=== PATIENT | female | born 2000 | race Caucasian/White ===

== ENCOUNTER → 2023-07-19 | Outpatient (CLI) | payer BC ==
[~2023-07-19] MED LIST: NO HOME MEDICATIONS; PRELONE15 MG/5 ML PO
== END ==
LOC: COL.RAD 13:27
DX: M51.24 Other intervertebral disc displacement, thoracic region (principal); M48.04 Spinal stenosis, thoracic region

== ENCOUNTER → 2023-08-09 | Outpatient (CLI) | payer BC ==
[~2023-08-09] VITALS: Ht 162.6 cm; Wt 64.1 kg
[~2023-08-09] MED LIST changes: +ADDERALL20 MG PO; +CELEXA40 MG PO; +FLEXERIL 1010 MG/TAB PO; +LEVOXYL0.1 MG PO; +MIRENA52 MG IY; +PROAIR HFA0.09 MG/AC IH; +VITAMIN D 50,1.25 MG PO; +VOLTAREN 75 DR75 MG PO
[2023-08-09 13:34] VITALS: BP 120/68; PULSE 74; TEMP 98.4
[2023-08-09 14:50] VITALS: BP 127/79; PULSE 75
== END ==
LOC: COL.RAD 13:13
DX: M51.36 Other intervertebral disc degeneration, lumbar region (principal)
CPT/HCPCS: J1100